=== PATIENT | female | born 1980 | race Caucasian/White ===

== ENCOUNTER → 2018-06-19 | Outpatient (CLI) | payer OTHER ==
--- NOTE | 2018-06-19 14:50 | PCVCIMAG ---
APPROVED REPORT Study performed: 06/19/2018 13:09:11 EXAM: Comprehensive 2D, Doppler, and color-flow Echocardiogram Patient Location: Echo lab Room #: 2Status: routine BSA: 1.88 HR: 83 bpmBP: 110/78 mmHg Rhythm: NSR Other Information Study Quality: Excellent Risk Factors: Cardiac Risk Factors: Hyperlipidemia Indications Dyspnea Palpitations Chest Pain 2D Dimensions IVSd: 7.44 (7-11mm)LVOT Diam: 18.52 (18-24mm) LVDd: 46.21 mm PWd: 6.22 (7-11mm)Ascending Ao: 32.50 (22-36mm) LVDs: 30.75 (25-40mm) Left Atrium: 30.47 (27-40mm) Aortic Root: 28.74 mm LV Single Plane 4CH: 64.09 % LV Single Plane 2CH: 77.30 % Biplane EF: 72.1 % Volumes Left Atrial Volume (Systole) Single Plane 4CH: 53.91 mLSingle Plane 2CH: 42.18 mL Biplane LA Volume: 51.00 mLLA ESV Index: 27.00 mL/m2 Aortic Valve AoV Peak [place].: 1.54 m/s AO Peak Gr.: 9.63 mmHgLVOT Max P.38 mmHg LVOT Max V: 1.16 m/s AIDAN Vmax: 2.02 cm2 Mitral Valve E/A Ratio: 1.5 MV Decel. Time: 242.56 ms MV E Max [place].: 0.77 m/s MV A [place].: 0.53 m/s IVRT: 65.74 ms TDI E/Lateral E': 5.50E/Medial E': 7.00 Medial E' [place].: 0.11 m/s Lateral E' [place].: 0.14 m/s Pulmonary Valve PV Peak [place].: 0.96 m/sPV Peak Gr.: 3.66 mmHg Pulmonary Vein P Vein S: 0.56 m/sP Vein A: 0.36 m/s P Vein D: 0.56 m/sP Vein A Dur.: 79.6 msec P Vein S/D Ratio: 1.00 Tricuspid Valve TR Peak [place].: 2.33 m/s TR Peak Gr.: 21.68 mmHg TV Vmax: 0.72 m/sPA Pressure: 29.00 mmHg Left Ventricle The left ventricle is normal size. There is normal LV segmental wall motion. There is normal left ventricular wall thickness. Left ventricular systolic function is normal. The left ventricular ejection fraction is within the normal range. LVEF is >70%. The left ventricular diastolic function is normal. Right Ventricle The right ventricle is normal size. The right ventricular systolic function is normal. Atria The left atrium size is normal. The right atrium size is normal. Aortic Valve Aortic valve is trileaflet. No aortic regurgitation is present. There is no aortic valvular stenosis. Mitral Valve The mitral valve is normal in structure. There is no mitral valve regurgitation noted. No evidence of mitral valve stenosis. Tricuspid Valve The tricuspid valve is normal in structure. Trace tricuspid regurgitation with a PA preassure of 29 mmHg. Pulmonic Valve The pulmonary valve is normal in structure. There is no pulmonic valvular regurgitation. Great Vessels The aortic root is normal in size. Aortic arch is normal in caliber. The ascending aorta is normal in size. IVC is normal in size and collapses >50% with inspiration. Pericardium There is no pericardial effusion. There is no pleural effusion. <Conclusion> The left ventricle is normal size. There is normal left ventricular wall thickness. Left ventricular systolic function is normal. The left ventricular diastolic function is normal. The right ventricle is normal size. The left atrium size is normal. Aortic valve is trileaflet. The mitral valve is normal in structure. Trace tricuspid regurgitation with a PA preassure of 29 mmHg.
--- NOTE | 2018-06-19 14:56 | PCVCIMAG ---
APPROVED REPORT Study performed: 06/19/2018 13:56:20 Exam: Stress Echocardiogram Indication: Chest pain , Palpitations Patient Location: Echo lab Stress Nurse: Julianna Anguiano RN Room #: 2 Status: routine Ht: 5 ft 9 in HR: 83 bpm BP: 110/78 mmHg Rhythm: NSR Medical History Medical History: Hyperlipidemia,Palpitations Cardiac Risk Factors: Hyperlipidemia Previous Cardiac Procedures: none Exercise History: Indeterminate Procedure The patient underwent an Exercise Stress Test using the Surendra Protocol. Blood pressure, heart rate, and EKG were monitored. An Echocardiogram was performed by extracorporeal technician in four stages in quad fashion. At peak stress, four selected images were obtained and placed side by side with resting images for comparison. Stress Test Details Stress Test: Exercise stress testing was performed using a Surendra protocol. HR Resting HR: 83 bpmMax Heart Rate (APMHR): 181 bpm Max HR Achieved: 176 bpmTarget HR (85% APMHR): 153 bpm % of APMHR: 97 Recovery HR: 78 bpm HR response to stress: Normal HR response to stress BP Resting BP: 110/79 mmHg Max BP: 144/60 mmHg Recovery BP: 110/68 mmHg BP response to stress: Normal blood pressure response to stress. ECG Resting ECG: Sinus Rhythm Stress ECG: Sinus Rhythm ST Change: Non-ischemic Arrhythmia: rare PAC Recovery ECG: Sinus Rhythm Recovery ST Change: Non-ischemic Recovery Arrhythmia: None Clinical Reason for Termination: Maximal effort Stress Symptoms: none Exercise duration: 9 min 46 sec Highest Stage Achieved: Stage 4: 4.2 mph at 16% grade. Exercise capacity: 12.6 METs Overall Exercise Capacity for Age: Good Scale: Active Angina Score: None No complications. Stress ECG Conclusion The patient exercised according to the SURENDRA protocol for 9:46 mins; achieving a work level of 12.6 METS. The resting heart rate of 75 bpm azk to a maximum heart rate of 176 bpm. This value represent 97% of the maximal, age-predicted heart rate. The resting blood pressure of 110/78 mmHg, zak to a maximum blood pressure of 144/60 mmHg. The exercise test was stopped due to fatigue. Pre-Stress Echo The resting Echocardiogram showed normal left ventricular contractility with an estimated Ejection Fraction of about 55-60%. Normal wall motion in all segments on baseline images. Post-Stress Echo The stress Echocardiogram showed normal left ventricular contractility with an estimated Ejection Fraction of about 65-70%. Normal augmentation of wall motion in all segments on post stress images. Clinical No clinical or ECG evidence for ischemia. Conclusion Clinical Response: Non-ischemic Exercise Capacity: Above average Stress ECG Response: Non-ischemic Stress Echo Images: Non-ischemic No clinical, EKG or echocardiographic evidence for ischemia. No echocardiographic evidence for exercise induced ischemia. Normal stress echocardiogram with maximal exercise stress. No prior study available for comparison. <Conclusion> No clinical, EKG or echocardiographic evidence for ischemia. No echocardiographic evidence for exercise induced ischemia. Normal stress echocardiogram with maximal exercise stress.
== END | disposition home or self-care (01) ==
LOC: PCVCIMAG 13:42
PROVIDERS: ATTEND Internal Medicine Cardiovascular Disease
DX: R07.9 Chest pain, unspecified (principal); R00.2 Palpitations; R06.00 Dyspnea, unspecified
CPT/HCPCS: 93306; 93351